=== PATIENT | female | born 2000 | race Caucasian/White ===

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

== ENCOUNTER 2018-01-07 21:31 | Emergency (ER) | payer SELFPAY ==
[2018-01-07 22:18] LABS: BASOPHILS 0.7 % (0-2); EOSINOPHILS 1.8 % (0-7); HEMATOCRIT 39.8 % (36.0-48.0); HEMOGLOBIN 13.5 g/dL (12-16); IMMATURE GRANULOCYTES 0.2 % (0-5); LYMPHOCYTES 39.6 % (15-50); MCH 30.5 pg (26.0-34.0); MCHC 33.9 g/dL (31.0-37.0); MCV 89.8 fL (80.0-100.0); MEAN PLATELET VOLUME 10.1 fL (7.4-10.4); NEUTROPHILS 49.7 % (40-80); RBC 4.43 10x6/uL (4.00-5.40); RDW 12.3 % (11.5-14.5); WBC 8.2 10x3/uL (4.8-10.8)
[2018-01-07 22:19] LABS: PLATELET COUNT 285 10x3/uL (130-400)
[2018-01-07 22:31] LABS: ALBUMIN 3.6 g/dL (3.4-5.0); ALKALINE PHOSPHATASE 60 U/L (46-116); ALT (SGPT) 22 U/L (10-68); BILIRUBIN - TOTAL 0.49 mg/dL (0.2-1.3); CALC OSMOLALITY 282 mosm/kg (275-300); CALCIUM 8.8 mg/dL (8.5-10.1); CARBON DIOXIDE 24.9 mmol/L (21.0-32.0); CHLORIDE - SERUM 104 mmol/L (98-107); CREATININE - SERUM 0.8 mg/dL (0.6-1.3); GLUCOSE 100 mg/dL (74-106); PROTEIN - SERUM 7.4 g/dL (6.4-8.2); SODIUM 141 mmol/L (136-145); UREA NITROGEN 17 mg/dL (7-18); eGFR NON AFRICAN AMERICAN > 90 mL/min (90-120)
[2018-01-07 22:35] LABS: HCG SERUM NEGATIVE (NEGATIVE)
[2018-01-07 23:00] LABS: APPEARANCE TURBID (CLEAR); BACTERIA NONE SEEN /hpf (NONE SEEN); BILIRUBIN NEGATIVE (NEGATIVE); COLOR RED (YELLOW); EPITHELIAL CELLS NSEEN /hpf (0-5); GLUCOSE NEGATIVE (NEGATIVE); KETONE NEGATIVE (NEGATIVE); NITRITE NEGATIVE (NEGATIVE); PROTEIN 2+ mg/dL (NEGATIVE); RED CELLS - URINE >50 /hpf (0-5); UROBILINOGEN NORMAL (NORMAL); WHITE CELLS - URINE NSEEN /hpf (0-5)
[2018-01-07 23:28] LABS: UDS - AMPHET NEGATIVE QUAL (NEGATIVE); UDS - BARB NEGATIVE QUAL (NEGATIVE); UDS - BENZO NEGATIVE QUAL (NEGATIVE); UDS - COCAINE NEGATIVE QUAL (NEGATIVE); UDS - OPIATE NEGATIVE QUAL (NEGATIVE); UDS - PCP NEGATIVE QUAL (NEGATIVE); UDS - THC NEGATIVE QUAL (NEGATIVE)
== END 2018-01-07 23:46 | disposition home or self-care (01) ==
LOC: D.ER 21:31
PROVIDERS: Family Medicine
DX: R10.11 Right upper quadrant pain (principal); A59.9 Trichomoniasis, unspecified; K80.50 Calculus of bile duct without cholangitis or cholecystitis without obstruction; K80.20 Calculus of gallbladder without cholecystitis without obstruction; F17.200 Nicotine dependence, unspecified, uncomplicated